=== PATIENT | female | born 1990 | race Caucasian/White ===

== ENCOUNTER 2016-07-02 17:41 | Emergency (ER) | payer OTHER ==
[2016-07-02] MEDS ORDERED: Sodium Chloride 0.9% 1,000 ML IV ONE (18:36)
--- NOTE | 2016-07-02 18:40 | EDM.PDOC ---
ED HPI GENERAL MEDICAL PROBLEM - General Chief Complaint: Abdominal Pain Stated Complaint: PT HAS STOMACH PAIN,PT 14WKS PREG Time Seen by Provider: 07/02/16 18:35 - History of Present Illness INITIAL COMMENTS - FREE TEXT/NARRATIVE: HISTORY AND PHYSICAL: History of present illness: Patient's 26-year-old female is proximally 14 weeks is a known history of cholelithiasis has been seen in the ER prior presents now with scleral icterus she states she's noted his jaundice over the last 20 448 hours she states the upper abdominal pain is improved but she has more back discomfort she one episode of vomiting over the weekend she had no vomiting since she denies fever chills chest pain or shortness of breath no vaginal discharge or bleeding Review of systems: As per history of present illness and below otherwise all systems reviewed and negative. Past medical history: As per history of present illness and as reviewed below otherwise noncontributory. Surgical history: As per history of present illness and as reviewed below otherwise noncontributory. Social history: No reported history of drug or alcohol abuse. Family history: As per history of present illness and as reviewed below otherwise noncontributory. Physical exam: HEENT: Atraumatic, normocephalic, pupils reactive, negative for conjunctival pallor scleral icterus noted, mucous membranes moist, throat clear, neck supple , nontender, trachea midline. Lungs: Clear to auscultation, breath sounds equal bilaterally, chest nontender. Heart: S1S2, regular, negative for clicks, rubs, or JVD. Abdomen: Soft, nondistended, nontender. Negative for masses or hepatosplenomegaly. Negative for costovertebral tenderness. Pelvis: Stable nontender. Genitourinary: Deferred. Rectal: Deferred. Extremities: Atraumatic, negative for cords or calf pain. Neurovascular unremarkable. Neuro: Awake, alert, oriented. Cranial nerves II through XII unremarkable. Cerebellum unremarkable. Motor and sensory unremarkable throughout. Exam nonfocal. Diagnostics: CBC CMP lipase amylase UA urine culture lactic acid PT/INR abdominal ultrasound Therapeutics: Normal saline 1 L bolus Impression: #1 second trimester #2 cholelithiasis with jaundice Definitive disposition and diagnosis as appropriate pending reevaluation and review of above. Abdominal Pain Score (Numeric/FACES): 4 - Related Data Allergies Allergy/AdvReac Type Severity Reaction Status Date / Time No Known Allergies Allergy Verified 07/02/16 18:22 Home Meds: Home Meds Citalopram [Celexa] 10 mg PO DAILY 06/26/16 [History] Vit W-Ca,Fe,FA(<1 mg) [ Vitamins] 1 each PO DAILY 06/26/16 [ History] Vitamin B6-pyridOXINE [Vitamin B6] 0 mg PO DAILY 06/26/16 [History] Lansoprazole [Prevacid] 2 cap PO DAILY 07/02/16 [History] Past Medical History HEENT History: Reports: Impaired vision Cardiovascular History: Reports: None Respiratory History: Reports: None Gastrointestinal History: Reports: None Genitourinary History: Reports: None [employer] WORKER History: Reports: Spontaneous Other Musculoskeletal History: left arm fracture Neurological History: Reports: Other (see below) Other Neuro History: abimael's disease Psychiatric History: Reports: Anxiety, Depression Endocrine/Metabolic History: Reports: None Hematologic History: Reports: None Immunologic History: Reports: None Oncologic (Cancer) History: Reports: None Dermatologic History: Reports: None - Infectious Disease History Infectious Disease History: Reports: Chicken pox - Past Surgical History Head Surgeries/Procedures: Reports: None Neurological Surgical History: Reports: None Musculoskeletal Surgical History: Reports: None Social & Family History - Family History Family Medical History: Noncontributory - Tobacco Use Smoking Status *Q: Never Smoker - Caffeine Use Caffeine Use: Reports: None Caffeine Use Comment: 2-4 drinks/week - Recreational Drug Use Recreational Drug Use: No ED ROS GENERAL - Review of Systems Review Of Systems: ROS reveals no pertinent complaints other than HPI. ED EXAM, GENERAL - Physical Exam Exam: See Below (See dictated) Course - Vital Signs Last Recorded V/S: Last Vital Signs Temp 36.7 C 07/02/16 18:24 Pulse 85 07/02/16 18:24 Resp 16 07/02/16 18:24 BP 104/61 07/02/16 18:24 Pulse Ox 99 07/02/16 18:24 - Orders/Labs/Meds Orders: Active Orders 24 hr Category Date Time Status Abdomen Ltd [US] Stat Exams 07/02/16 18:36 Stop Req AMYLASE [CHEM] Stat Lab 07/02/16 18:47 Received COMPREHENSIVE METABOLIC PN,CMP [CHEM] Stat Lab 07/02/16 18:47 Received CULTURE URINE [RM] Stat Lab 07/02/16 18:40 Received INR,PT,PROTHROMBIN TIME [COAG] Stat Lab 07/02/16 18:47 Received LIPASE [CHEM] Stat Lab 07/02/16 18:47 Received UA W/MICROSCOPIC [URIN] Stat Lab 07/02/16 18:40 Results Sodium Chloride 0.9% [Normal Saline] 1,000 ml Med 07/02/16 18:36 Active IV STAT Medication Orders Sodium Chloride (Normal Saline) 1,000 mls @ 999 mls/hr IV STAT ONE Stop: 07/02/16 19:36 Last Admin: 07/02/16 18:57 Dose: 999 mls/hr Labs: Laboratory Tests 07/02/16 07/02/16 07/02/16 Range/Units 18:40 18:47 18:47 WBC 5.58 (4.0-11.0) K/uL RBC 4.49 (4.30-5.90) M/uL Hgb 13.2 (12.0-16.0) g/dL Hct 39.1 (36.0-46.0) % MCV 87.1 (80.0-98.0) fL MCH 29.4 (27.0-32.0) pg MCHC 33.8 (31.0-37.0) g/dL RDW Std Deviation 48.2 (28.0-62.0) fl RDW Coeff of Gurpreet 15 (11.0-15.0) % Plt Count 181 (150-400) K/uL MPV 11.60 (7.40-12.00) fL Neut % (Auto) 68.4 (48.0-80.0) % Lymph % (Auto) 22.9 (16.0-40.0) % [place] % (Auto) 7.2 (0.0-15.0) % Eos % (Auto) 1.3 (0.0-7.0) % Baso % (Auto) 0.2 (0.0-1.5) % Neut # 3.8 (1.4-5.7) K/uL Lymph # 1.3 (0.6-2.4) K/uL [place] # 0.4 (0.0-0.8) K/uL Eos # 0.1 (0.0-0.7) K/uL Baso # 0.0 (0.0-0.1) K/uL Nucleated RBC % 0.0 /100WBC Nucleated RBCs # 0 K/uL Lactate 0.4 (0.20-2.00) mmol/L Urine Color YELLOW Urine Appearance CLEAR Urine pH 6.5 (5.0-8.0) Ur Specific Amado <= 1.005 (1.001-1.035) Urine Protein NEGATIVE (NEGATIVE) mg/dL Urine Glucose (UA) NEGATIVE (NEGATIVE) mg/dL Urine Ketones NEGATIVE (NEGATIVE) mg/dL Urine Occult Blood NEGATIVE (NEGATIVE) Urine Nitrite NEGATIVE (NEGATIVE) Urine Bilirubin NEGATIVE (NEGATIVE) Urine Urobilinogen 0.2 (<2.0) EU/dL Ur Leukocyte Esterase NEGATIVE (NEGATIVE) Meds: Medications Generic Name Dose Route Start Last Admin Trade Name Freq PRN Reason Stop Dose Admin Sodium Chloride 1,000 mls @ 999 mls/hr 07/02/16 18:36 07/02/16 18:57 Normal Saline IV 07/02/16 19:36 999 mls/hr STAT ONE Administration Departure - Departure Time of Disposition: 19:02 Disposition: DC/Tfer to Other 70 Condition: good Clinical Impression: Cholelithiasis, Jaundice, Second trimester , Abdominal pain Forms: ED Department Discharge - My Orders Last 24 Hours: My Active Orders 07/02/16 18:36 Abdomen Ltd [US] Stat Sodium Chloride 0.9% [Normal Saline] 1,000 ml IV STAT 07/02/16 18:40 CULTURE URINE [RM] Stat UA W/MICROSCOPIC [URIN] Stat 07/02/16 18:47 AMYLASE [CHEM] Stat COMPREHENSIVE METABOLIC PN,CMP [CHEM] Stat INR,PT,PROTHROMBIN TIME [COAG] Stat LIPASE [CHEM] Stat - Assessment/Plan Last 24 Hours: My Active Orders 07/02/16 18:36 Abdomen Ltd [US] Stat Sodium Chloride 0.9% [Normal Saline] 1,000 ml IV STAT 07/02/16 18:40 CULTURE URINE [RM] Stat UA W/MICROSCOPIC [URIN] Stat 07/02/16 18:47 AMYLASE [CHEM] Stat COMPREHENSIVE METABOLIC PN,CMP [CHEM] Stat INR,PT,PROTHROMBIN TIME [COAG] Stat LIPASE [CHEM] Stat
[2016-07-02 19:19] LABS: CHLORIDE,CL 103 mmol/L (98-110); SODIUM,NA 132 mmol/L (136-146)
[2016-07-02 20:46] VITALS: BP 100/60
== END 2016-07-02 19:45 | disposition other institution (70) ==
LOC: MW.ED 17:41
DX: O99.612 Diseases of the digestive system complicating pregnancy, second trimester (principal); R17 Unspecified jaundice; Z79.899 Other long term (current) drug therapy; Z3A.14 14 weeks gestation of pregnancy
CPT/HCPCS: 36415; 80053; 81001; 82150; 83605; 83690; 85025; 85610; 87086; 96360; 99285; J7040; 99284

== ENCOUNTER 2016-12-26 08:52 | Inpatient (IN) | payer OTHER ==
[2016-12-26] MEDS ORDERED: Butorphanol 1 MG/ML SDV IVPUSH PRN (09:16)
[2016-12-26] MEDS ORDERED: Nalbuphine 10 MG/1 ML Vial IVPUSH PRN (09:16)
[2016-12-26] MEDS ORDERED: Water For Irrigation,Sterile 1,000 ML Container IRR PRN (09:16)
[2016-12-26] MEDS ORDERED: Methylergonovine 0.2 MG/1 ML Amp IM PRN (09:16)
[2016-12-26] MEDS ORDERED: Misoprostol 200 MCG Tab PO PRN (09:16)
[2016-12-26] MEDS ORDERED: Carboprost Tromethamine 250 MCG/1 ML Amp IM PRN (09:16)
[2016-12-26] MEDS ORDERED: Lidocaine 1% 50 ML MDV INJECT PRN (09:16)
[2016-12-26] MEDS ORDERED: Sodium Chloride 0.9% 10 ML Syringe FLUSH PRN (09:16)
[2016-12-26] MEDS ORDERED: Sodium Chloride 0.9% 2.5 ML Syringe FLUSH PRN (09:16)
[2016-12-26] MEDS ORDERED: Oxytocin/Lactated Ringers 30 UNIT/500 ML BAG IV SCH (09:30)
[2016-12-26] MEDS ORDERED: Lactated Ringers 1,000 ML IV SCH (09:30)
[2016-12-26] MEDS ORDERED: Lidocaine 1% 50 ML MDV ONE (10:04)
[2016-12-26] MEDS ORDERED: Acetaminophen 500 MG Tab PO PRN ×2 (11:03)
[2016-12-26] MEDS ORDERED: oxyCODONE 5 MG Tab PO PRN (11:03)
[2016-12-26] MEDS ORDERED: Lanolin 100% Cream 7 GM Tube TOP PRN (11:03)
[2016-12-26] MEDS ORDERED: Docusate Sodium 100 MG Cap PO PRN (11:03)
[2016-12-26] MEDS ORDERED: Benzocaine/Menthol 20%-0.5% Spray 78 GM Cannister TOP PRN (11:03)
[2016-12-26] MEDS ORDERED: Ibuprofen 400 MG Tab PO PRN (11:03)
[2016-12-26] MEDS ORDERED: Bisacodyl 10 MG Supp RECTAL PRN (11:03)
[2016-12-26] MEDS ORDERED: Witch Hazel Medicated Pads 40/Jar TOP PRN (11:03)
[2016-12-26] MEDS: Ibuprofen 800 MG Tab PO PRN ×2 (13:10→20:34)
--- NOTE | 2016-12-26 17:25 | OR ---
SURGEON: Gabriella Heaton MD DATE OF PROCEDURE: 12/26/2016 PREOPERATIVE DIAGNOSES: 1. Term at 40 weeks gestation. 2. Spontaneous labor. POSTOPERATIVE DIAGNOSES: 1. Term at 40 weeks gestation. 2. Spontaneous labor. 3. Delivered. PROCEDURES: 1. Precipitate vaginal delivery. 2. Repair of first-degree perineal laceration. ANESTHESIA: Local. ESTIMATED BLOOD LOSS: 100 mL. COMPLICATIONS: None. DISPOSITION: Mother and baby stable in Labor and Delivery room, bonding. FINDINGS: Female infant, weight 3830 g, score 8 and 9 at 1 and 5 minutes respectively. Grossly normal placenta with 3-vessel cord. First-degree laceration. BRIEF HISTORY: Sharron is a 26-year-old, G4, P 2-0-1-2, who presented at 9:00 a.m. today with a history of regular contractions since 6:00 a.m. She denied vaginal bleeding, leakage of fluid, and reported good movement. GBS negative. On presentation, she was 5-6 cm dilated, 100% effaced, station -3 with an intact membranes. While I was evaluating her approximately 45 minute later, she reported that she felt that her membrane had spontaneously ruptured and was complaining of increasing rectal pressure. SROM was confirmed on vaginal examination with clear amniotic fluid and at this stage she was fully dilated at station +3. She was encouraged to commence pushing. Unfortunately she was unable get an epidural which she had requested. heart tracing remained category 1. She was set up for delivery in modified dorsal lithotomy position. PROCEDURE DETAILS: She had a spontaneous vaginal delivery of a live female infant in direct occipital anterior position. Clear amniotic fluid at delivery. Anterior and posterior shoulders and the rest of the infant was delivered without difficulty. Baby was vigorous and cried spontaneously at . The baby was delivered onto the maternal abdomen in the presence of the attendant nursery nurse. With delivery of the , oxytocin infusion was commenced for active management of third stage of labor. Delayed cord clamping was performed and the cord was subsequently cut by the father of the baby. Cord blood and gas specimens were obtained. The placenta was delivered by controlled cord traction, appeared to be complete and intact. Examination of the perineum revealed a small first-degree laceration at 7 o'clock position. The area was infiltrated with 1% lidocaine, after adequate anesthesia was achieved, it was repaired with 2-0 Caprosyn suture. Hemostatic post repair. Uterine massage was performed and the uterus was found to be well contracted below the umbilicus. The patient tolerated the procedure well. Sponge, instrument, and needle counts were correct at the end of the delivery. BRIAN / KRYSTYNA /[id number] MTDD
[2016-12-27] MEDS: Ibuprofen 800 MG Tab PO PRN ×2 (06:02→11:49)
--- NOTE | 2016-12-27 06:31 | PCM.PNPP ---
- General Info Date of Service: 12/27/16 Functional Status: Reports: Pain Controlled, Tolerating Diet, Ambulating, Urinating - Review of Systems General: Denies: Fever, Weakness, Chills HEENT: Denies: Headaches Pulmonary: Denies: Shortness of Breath, Pleuritic Chest Pain, Cough Cardiovascular: Denies: Chest Pain, Palpitations, Dyspnea on Exertion Gastrointestinal: Denies: Abdominal Pain, Nausea, Vomiting Genitourinary: Denies: Dysuria, Incontinence Psychiatric: Denies: Confusion, Anxiety - General Info Date of Service: 12/27/16 - Patient Data Vital Signs - Most Recent: Last Vital Signs Temp 36.6 C 12/27/16 04:00 Pulse 66 12/27/16 04:00 Resp 14 12/27/16 04:00 BP 89/54 L 12/27/16 04:00 Pulse Ox 97 12/27/16 04:00 Weight - Most Recent: 190 lb I&O - Last 24 Hours: Intake & Output 12/26/16 12/26/16 12/27/16 14:59 22:59 06:59 Output Total 400 Balance -400 Lab Results - Last 24 Hours: Laboratory Results - last 24 hr 12/26/16 12/26/16 12/27/16 Range/Units 09:31 09:31 04:58 WBC 11.69 H (4.0-11.0) K/uL RBC 4.51 (4.30-5.90) M/uL Hgb 12.6 11.7 L (12.0-16.0) g/dL Hct 38.0 36.2 (36.0-46.0) % MCV 84.3 (80.0-98.0) fL MCH 27.9 (27.0-32.0) pg MCHC 33.2 (31.0-37.0) g/dL RDW Std Deviation 45.8 (28.0-62.0) fl RDW Coeff of Gurpreet 15 (11.0-15.0) % Plt Count 164 (150-400) K/uL MPV 12.70 H (7.40-12.00) fL Nucleated RBC % 0.0 /100WBC Nucleated RBCs # 0 K/uL Blood Type A POSITIVE Antibody Screen NEGATIVE Med Orders - Current: Current Medications Acetaminophen (Tylenol Extra Strength) 500 mg PO Q4H PRN PRN Reason: Pain Acetaminophen (Tylenol Extra Strength) 1,000 mg PO Q4H PRN PRN Reason: Pain Last Admin: 12/26/16 23:20 Dose: 1,000 mg Benzocaine/Menthol (Dermoplast Pain Relief 20%-0.5% [place]) 78 gm TOP ASDIRECTED PRN PRN Reason: Perineal Comfort Measure Last Admin: 12/26/16 13:14 Dose: 1 can Bisacodyl (Dulcolax) 10 mg RECTAL .ONCE PRN PRN Reason: Constipation Docusate Sodium (Colace) 100 mg PO BID PRN PRN Reason: Constipation Emollient Ointment (Lansinoh Hpa) 0 gm TOP ASDIRECTED PRN PRN Reason: Sore Nipples Ibuprofen (Motrin) 400 mg PO Q4H PRN PRN Reason: Pain Ibuprofen (Motrin) 800 mg PO Q6H PRN PRN Reason: Pain Last Admin: 12/27/16 06:02 Dose: 800 mg Oxycodone HCl (Oxycodone) 5 mg PO Q2H PRN PRN Reason: Pain Witch Meaghan (Tucks) 1 pad TOP ASDIRECTED PRN PRN Reason: comfort care Last Admin: 12/26/16 13:11 Dose: 1 tub Discontinued Medications Butorphanol Tartrate (Stadol) 1 mg IVPUSH Q1H PRN PRN Reason: Pain Carboprost Tromethamine (Hemabate Ds) 250 mcg IM ASDIRECTED PRN PRN Reason: Post Hemorrhage Lactated Ringer's (Ringers, Lactated) 1,000 mls @ 150 mls/hr IV ASDIRECTED JUAN MANUEL Last Admin: 12/26/16 09:39 Dose: 500 mls/hr Oxytocin/Lactated Ringer's (Pitocin In Lr 30 Units/500 Ml) 30 unit in 500 mls @ 999 mls/hr IV TITRATE JUAN MANUEL; 999 MUNITS/MIN PRN Reason: Protocol Stop: 12/26/16 10:01 Lidocaine HCl (Xylocaine 1%) 50 ml INJECT .ONCE PRN PRN Reason: Laceration repair Lidocaine HCl (Xylocaine 1%) Confirm Administered Dose 50 ml .ROUTE .[facility] ONE Stop: 12/26/16 10:05 Methylergonovine Maleate (Methergine) 0.2 mg IM ASDIRECTED PRN PRN Reason: Post Hemorrhage Misoprostol (Cytotec) 200 mcg PO .ONCE PRN PRN Reason: Post Hemorrhage Nalbuphine HCl (Nubain) 10 mg IVPUSH Q1H PRN PRN Reason: Pain (severe 7-10) Sodium Chloride (Saline Flush) 10 ml FLUSH ASDIRECTED PRN PRN Reason: Keep Vein Open Sodium Chloride (Saline Flush) 2.5 ml FLUSH ASDIRECTED PRN PRN Reason: Keep Vein Open Sterile Water (Sterile Water For Irrigation) 1,000 ml IRR ASDIRECTED PRN PRN Reason: delivery - Interaction Infant Disposition, : [place] at Bedside Infant Interaction: Not Applicable Feeding: Breastfed Infant; Nursed Well Support Person: - Recovery Exam Fundal Tone: Firm Fundal Level: 1 Fingerbreadths Below Umbilicus Fundal Placement: Midline Lochia Amount: Scant Lochia Color: Rubra/Red Perineum Description: Other (see below) Other Perinuem Description: 1st degree laceration with repair Episiotomy/Laceration: Approximated Bladder Status: Voiding Urinary Elimination: Voided - Exam General: Alert, Oriented Lungs: Clear to Auscultation, Normal Respiratory Effort Cardiovascular: Regular Rate, Regular Rhythm GI/Abdominal Exam: Soft, Non-Tender Extremities: Pedal Edema Skin: Warm Psy/Mental Status: Alert, Normal Affect, Normal Mood - Problem List & Annotations (1) Vaginal delivery SNOMED Code(s): 661731424 Code(s): O80 - ENCOUNTER FOR FULL-TERM UNCOMPLICATED DELIVERY Status: Acute Current Visit: No - Problem List Review Problem List Initiated/Reviewed/Updated: Yes - My Orders Last 24 Hours: My Active Orders 12/26/16 08:59 Non Stress Test [RC] PER UNIT ROUTINE Up ad Tiffani [RC] ASDIRECTED Vaginal Exam [RC] Click to Edit Vital Signs [RC] PER UNIT ROUTINE 12/26/16 09:16 Heart Tones [RC] CONTINUOUS Non Stress Test [RC] PER UNIT ROUTINE May Shower [RC] ASDIRECTED Notify Provider [RC] PRN Up ad Tiffani [RC] ASDIRECTED Vaginal Exam [RC] PRN Vital Signs [RC] PER UNIT ROUTINE 12/26/16 11:03 Patient Status [ADT] Routine May Shower [RC] ASDIRECTED Up ad Tiffani [RC] ASDIRECTED Vital Signs [RC] PER UNIT ROUTINE Acetaminophen [Tylenol Extra Strength] 1,000 mg PO Q4H PRN Acetaminophen [Tylenol Extra Strength] 500 mg PO Q4H PRN Benzocaine/Menthol [Dermoplast Pain Relief 20%-0.5% [place]] 78 gm TOP ASDIRECTED PRN Bisacodyl [Dulcolax] 10 mg RECTAL .ONCE PRN Docusate Sodium [Colace] 100 mg PO BID PRN Ibuprofen [Motrin] 400 mg PO Q4H PRN Ibuprofen [Motrin] 800 mg PO Q6H PRN Lanolin [Lansinoh HPA] See Dose Instructions TOP ASDIRECTED PRN Witch Meaghan [Tucks] 1 pad TOP ASDIRECTED PRN oxyCODONE 5 mg PO Q2H PRN Assess Lochia [WOMSER] Per Unit Routine Assess Uterine Involution [WOMSER] Per Unit Routine Breast Pump [WOMSER] Per Unit Routine Perineal Care [OM.PC] Per Unit Routine Peripheral IV Discontinue [OM.PC] Routine Resuscitation Status Routine 12/26/16 Lunch Regular Diet [DIET] - Assessment Assessment:: PPD#1 s/p , stable and afebrile Clinically stable for discharge - Plan Plan:: Patient may be discharged home if baby is discharged by peds Discharge instructions were given Bleeding and infection precaution reviewed Nothing in the vagina for 6 weeks Continue PNV Follow up in 6 weeks
[2016-12-27 11:40] VITALS: BP 106/66
== END 2016-12-27 12:17 | disposition home or self-care (01) | DRG 775 ==
LOC: MW.OBCHECK 08:52 → MW.OB 08:54 → MW.OBCHECK 09:50 → OBSVTOIN 10:05 → MW.OB 10:05
PROVIDERS: ADMIT Obstetrics & Gynecology; ATTEND Obstetrics & Gynecology
PROC: 10E0XZZ Delivery of Products of Conception, External Approach (ICD-10-PCS; principal; 2016-12-26)
PROC: 0HQ9XZZ Repair Perineum Skin, External Approach (ICD-10-PCS; 2016-12-26)
DX: O62.3 Precipitate labor (principal); O70.0 First degree perineal laceration during delivery; Z3A.40 40 weeks gestation of pregnancy; Z37.0 Single live birth
CPT/HCPCS: 36415; 59025; 85014; 85018; 85027; 86850; 86900; 86901; A9270-GY; J7120

== ENCOUNTER 2018-11-29 20:35 | Inpatient (IN) | payer OTHER ==
[2018-11-29] MEDS ORDERED: Oxytocin/0.9 % Sodium Chloride 30 UNIT/500 ML BAG IV SCH (23:45)
[2018-11-29] MEDS ORDERED: Lactated Ringers 1,000 ML IV SCH (23:45)
[2018-11-29] MEDS ORDERED: Sodium Chloride 0.9% 10 ML SDV IV PRN (23:48)
[2018-11-29] MEDS ORDERED: Ondansetron 4 MG/2 ML SDV IVPUSH PRN (23:48)
[2018-11-29] MEDS ORDERED: Lidocaine 1% 50 ML MDV INJECT PRN (23:48)
[2018-11-29] MEDS ORDERED: Nalbuphine 10 MG/1 ML Vial IVPUSH PRN (23:48)
[2018-11-29] MEDS ORDERED: Butorphanol 1 MG/ML SDV IVPUSH PRN (23:48)
[2018-11-29] MEDS ORDERED: Sodium Chloride 0.9% 10 ML Syringe FLUSH PRN (23:48)
[2018-11-29] MEDS ORDERED: Tranexamic Acid 1,000 MG in Sodium Chloride 0.9% 100 ML IV PRN (23:48)
[2018-11-29] MEDS ORDERED: Water For Irrigation,Sterile 1,000 ML Container IRR PRN (23:48)
[2018-11-29] MEDS ORDERED: Methylergonovine 0.2 MG/1 ML Amp IM PRN (23:48)
[2018-11-29] MEDS ORDERED: Misoprostol 200 MCG Tab PO PRN (23:48)
[2018-11-29] MEDS ORDERED: Sodium Chloride 0.9% 2.5 ML Syringe FLUSH PRN (23:48)
[2018-11-29] MEDS ORDERED: Carboprost Tromethamine 250 MCG/1 ML Amp IM PRN (23:48)
[2018-11-30] MEDS ORDERED: Ropivacaine HCl/PF 100 ML ONE (00:50)
[2018-11-30] MEDS ORDERED: fentaNYL 100 MCG/2 ML SDV ONE (00:50)
[2018-11-30] MEDS ORDERED: Benzocaine/Menthol 20%-0.5% Spray 78 GM Cannister TOP PRN (01:21)
[2018-11-30] MEDS ORDERED: Aluminum Hydroxide/Magnesium Hydroxide/Simethicone Susp 30 ML Cup PO PRN (01:21)
[2018-11-30] MEDS ORDERED: Witch Hazel Medicated Pads 40/Jar TOP PRN (01:21)
[2018-11-30] MEDS ORDERED: Lanolin 100% Cream 7 GM Tube TOP PRN (01:21)
[2018-11-30] MEDS ORDERED: Acetaminophen 500 MG Tab PO PRN (01:21)
[2018-11-30] MEDS ORDERED: Bisacodyl 10 MG Supp RECTAL PRN (01:21)
[2018-11-30] MEDS ORDERED: oxyCODONE 5 MG Tab PO PRN (01:21)
[2018-11-30] MEDS ORDERED: Ibuprofen 400 MG Tab PO PRN (01:21)
[2018-11-30] MEDS ORDERED: Docusate Sodium 100 MG Cap PO PRN (01:21)
--- NOTE | 2018-11-30 01:29 | PCM.OPNOTE ---
- General Post-Op/Procedure Note Date of Surgery/Procedure: 11/30/18 Operative Procedure(s): /1st MLL repaired Findings: Viable male APGARs 9, 9 weight pending. spontaneous delivery intact placenta with 3V cord. Pre Op Diagnosis: 39 week IUP. Active labor Post-Op Diagnosis: Same Anesthesia Technique: Local Primary Surgeon: Anita Sam EBL in mLs: 300 Complications: none known Condition: Stable Free Text/Narrative:: Dictation [id number]
--- NOTE | 2018-11-30 02:03 | OR ---
SURGEON: Anita Sam M.D. DATE OF PROCEDURE: 11/30/2018 PREOPERATIVE DIAGNOSES: 1. A 39-week intrauterine . 2. Active labor. POSTOPERATIVE DIAGNOSES: 1. A 39-week intrauterine . 2. Active labor. PROCEDURE: Spontaneous vaginal delivery, first-degree midline laceration repaired. ANESTHESIA: Local. ESTIMATED BLOOD LOSS: 300 mL. COMPLICATIONS: None. FINDINGS: Viable male. score 9 at 1 minute and 9 at 5 minutes. Weight is pending. Spontaneous delivery, intact placenta, 3-vessel cord. DISPOSITION: to [facility], mom in LDRP. PROCEDURE DETAILS: Sharron is a 28-year-old, -0-1-3, at 39 weeks' gestational age who presents in the late evening of 11/29/2018 with regular contractions. She was found to be 6 cm, 90% effaced, -2 station. Therefore, she was admitted. Routine labs were drawn, IV hydration was initiated. The patient had spontaneous rupture of membranes. Clear fluid was returned. She is group B beta strep negative. heart tones are category 1. The patient began to progress more quickly thereafter. Weed Control Inspector arrived; however, the patient was already progressed to complete and feeling the urge to push. Therefore, she was placed in modified dorsal lithotomy position. With next contraction, she was found to be in the +4 station, therefore pushed. Delivered infant's head atraumatically, spontaneously, followed by anterior shoulder, posterior shoulder, and remainder of body. Infant's oropharynx and nares bulb suctioned. was handed to his mother with attending nursing staff at her side. After a delay, cord was clamped x2 and cut. Cord arterial, cord venous, cord blood sampling obtained. Light pressure was applied while the placenta was delivered spontaneously intact. Vigorous fundal uterine massage was then applied while 30 units of Pitocin was delivered in 500 mL of IV fluid. Upon inspection of cervix, vaginal sidewalls, and perineum, there was found to be a first-degree midline laceration, repaired using 3-0 Vicryl after prepping the region with approximately 6 mL of 1% lidocaine. The patient tolerated the repair well. Hemostasis appeared evident. Uterus remained firm. Sponge, instrument, and needle count was correct. The patient remained in LDRP, to [facility]. DELANEY / KRYSTYNA /[id number]
[2018-11-30] MEDS: Ibuprofen 800 MG Tab PO PRN ×2 (04:32→13:54)
[2018-11-30] MEDS: Acetaminophen 500 MG Tab PO PRN ×2 (08:25→17:27)
--- NOTE | 2018-11-30 19:10 | PCM.PNPP ---
- General Info Date of Service: 11/30/18 Subjective Update: 28yo P4 s/p PPD0 , she is ambulating , voiding and tolerating regular diet , want to go home at 3am when baby is 24hrs Functional Status: Reports: Pain Controlled, Tolerating Diet, Ambulating, Urinating - Review of Systems General: Reports: No Symptoms HEENT: Reports: No Symptoms Pulmonary: Reports: No Symptoms Cardiovascular: Reports: No Symptoms Gastrointestinal: Reports: No Symptoms Genitourinary: Reports: No Symptoms Musculoskeletal: Reports: No Symptoms Skin: Reports: No Symptoms Neurological: Reports: No Symptoms - General Info Date of Service: 11/30/18 - Patient Data Vital Signs - Most Recent: Last Vital Signs Temp 36.8 C 11/30/18 04:05 Pulse 74 11/30/18 04:05 Resp 16 11/30/18 04:05 BP 111/63 11/30/18 04:05 Pulse Ox 97 11/30/18 04:05 Weight - Most Recent: 88.904 kg Lab Results - Last 24 Hours: Laboratory Results - last 24 hr 11/30/18 11/30/18 11/30/18 Range/Units 00:00 00:00 00:57 WBC 16.51 H (4.0-11.0) K/uL RBC 4.35 (4.30-5.90) M/uL Hgb 10.9 L (12.0-16.0) g/dL Hct 34.6 L (36.0-46.0) % MCV 79.5 L (80.0-98.0) fL MCH 25.1 L (27.0-32.0) pg MCHC 31.5 (31.0-37.0) g/dL RDW Std Deviation 43.3 (28.0-62.0) fl RDW Coeff of Gurpreet 15 (11.0-15.0) % Plt Count 175 (150-400) K/uL MPV 12.30 H (7.40-12.00) fL Nucleated RBC % 0.0 /100WBC Nucleated RBCs # 0 K/uL Cord ABG pH 7.238 (7.18-7.38) Cord ABG Base Excess -6 (-10--2) Cord VBG pH 7.304 (7.25-7.45) Cord VBG Base Excess -6 (-10--2) Blood Type A POSITIVE Antibody Screen NEGATIVE 11/30/18 Range/Units 12:07 WBC (4.0-11.0) K/uL RBC (4.30-5.90) M/uL Hgb 10.4 L (12.0-16.0) g/dL Hct 32.7 L (36.0-46.0) % MCV (80.0-98.0) fL MCH (27.0-32.0) pg MCHC (31.0-37.0) g/dL RDW Std Deviation (28.0-62.0) fl RDW Coeff of Gurpreet (11.0-15.0) % Plt Count (150-400) K/uL MPV (7.40-12.00) fL Nucleated RBC % /100WBC Nucleated RBCs # K/uL Cord ABG pH (7.18-7.38) Cord ABG Base Excess (-10--2) Cord VBG pH (7.25-7.45) Cord VBG Base Excess (-10--2) Blood Type Antibody Screen Med Orders - Current: Current Medications Acetaminophen (Tylenol Extra Strength) 500 mg PO Q4H PRN PRN Reason: Pain Acetaminophen (Tylenol Extra Strength) 1,000 mg PO Q4H PRN PRN Reason: Pain Last Admin: 11/30/18 17:27 Dose: 1,000 mg Al Hydroxide/Mg Hydroxide (Mag-Al Plus) 30 ml PO Q8H PRN PRN Reason: Heartburn Benzocaine/Menthol (Dermoplast Pain Relief 20%-0.5% [place]) 78 gm TOP ASDIRECTED PRN PRN Reason: Perineal Comfort Measure Bisacodyl (Dulcolax) 10 mg RECTAL ONETIME PRN PRN Reason: Constipation Docusate Sodium (Colace) 100 mg PO BID PRN PRN Reason: Constipation Emollient Ointment (Lansinoh Hpa) 0 gm TOP ASDIRECTED PRN PRN Reason: Sore Nipples Lactated Ringer's (Ringers, Lactated) 1,000 mls @ 150 mls/hr IV ASDIRECTED JUAN MANUEL Last Admin: 11/30/18 00:10 Dose: 999 mls/hr Oxytocin/Sodium Chloride (Oxytocin 30 Unit/500 Ml-Ns) 30 unit in 500 mls @ 555 mls/hr IV TITRATE JUAN MANUEL Tranexamic Acid 1,000 mg/ (Sodium Chloride) 110 mls @ 660 mls/hr IV ONETIME PRN PRN Reason: Bleeding Ibuprofen (Motrin) 400 mg PO Q4H PRN PRN Reason: Pain Ibuprofen (Motrin) 800 mg PO Q6H PRN PRN Reason: Pain Last Admin: 11/30/18 13:54 Dose: 800 mg Lidocaine HCl (Xylocaine 1%) 50 ml INJECT ONETIME PRN PRN Reason: Laceration repair Last Admin: 11/30/18 01:00 Dose: 50 ml Methylergonovine Maleate (Methergine) 0.2 mg IM ASDIRECTED PRN PRN Reason: Post Hemorrhage Misoprostol (Cytotec) 200 mcg PO ONETIME PRN PRN Reason: Post Hemorrhage Nalbuphine HCl (Nubain) 10 mg IVPUSH Q1H PRN PRN Reason: Pain (severe 7-10) Ondansetron HCl (Zofran) 4 mg IVPUSH Q4H PRN PRN Reason: Nausea/Vomiting Oxycodone HCl (Oxycodone) 5 mg PO Q2H PRN PRN Reason: Pain Sodium Chloride (Saline Flush) 10 ml FLUSH ASDIRECTED PRN PRN Reason: Keep Vein Open Sodium Chloride (Saline Flush) 2.5 ml FLUSH ASDIRECTED PRN PRN Reason: Keep Vein Open Sodium Chloride (Normal Saline) 10 ml IV ASDIRECTED PRN PRN Reason: IV Use Sterile Water (Sterile Water For Irrigation) 1,000 ml IRR ASDIRECTED PRN PRN Reason: delivery Last Admin: 11/30/18 01:00 Dose: 1,000 ml Witch Meaghan (Tucks) 1 pad TOP ASDIRECTED PRN PRN Reason: comfort care Discontinued Medications Butorphanol Tartrate (Stadol) 1 mg IVPUSH Q1H PRN PRN Reason: Pain Carboprost Tromethamine (Hemabate Ds) 250 mcg IM ASDIRECTED PRN PRN Reason: Post Hemorrhage Fentanyl (Sublimaze) Confirm Administered Dose 100 mcg .ROUTE .STK-MED ONE Stop: 11/30/18 00:51 Ropivacaine (Naropin 0.2%) Confirm Administered Dose 100 mls @ as directed .ROUTE .STK-MED ONE Stop: 11/30/18 00:51 - Interaction Support Person: - Recovery Exam Fundal Tone: Firms with Massage Fundal Level: 1 Fingerbreadths Below Umbilicus Fundal Placement: Midline Lochia Amount: Scant Lochia Color: Rubra/Red Perineum Description: Other (see below) Other Perinuem Description: 1 degree laceration Episiotomy/Laceration: Approximated Bladder Status: Voiding Urinary Elimination: Voided - Exam General: Alert HEENT: Pupils Equal Neck: Supple Lungs: Clear to Auscultation Cardiovascular: Regular Rate GI/Abdominal Exam: Normal Bowel Sounds Extremities: Normal Inspection Skin: Warm Neurological: No New Focal Deficit Psy/Mental Status: Alert - Problem List & Annotations (1) Vaginal delivery SNOMED Code(s): 981615572 Code(s): O80 - ENCOUNTER FOR FULL-TERM UNCOMPLICATED DELIVERY Status: Acute Current Visit: No - Problem List Review Problem List Initiated/Reviewed/Updated: Yes - Assessment Assessment:: 28yo P4 s/p PPD0 , she is ambulating , voiding and tolerating regular diet , want to go home at 3am when baby is 24hrs - Plan Plan:: Routine Discharge home as per patient request if stable
[2018-12-01] MEDS: Ibuprofen 800 MG Tab PO PRN (04:53)
[2018-12-01] MEDS: Acetaminophen 500 MG Tab PO PRN (08:37)
--- NOTE | 2018-12-01 10:05 | PCM.PNPP ---
- General Info Date of Service: 12/01/18 Subjective Update: 28yo P4 s/p PPD1 , she is ambulating , voiding and tolerating regular diet , Functional Status: Reports: Pain Controlled, Tolerating Diet, Ambulating, Urinating - Review of Systems General: Reports: No Symptoms HEENT: Reports: No Symptoms Pulmonary: Reports: No Symptoms Cardiovascular: Reports: No Symptoms Gastrointestinal: Reports: No Symptoms Genitourinary: Reports: No Symptoms Musculoskeletal: Reports: No Symptoms Skin: Reports: No Symptoms Neurological: Reports: No Symptoms Psychiatric: Reports: No Symptoms - General Info Date of Service: 12/01/18 - Patient Data Vital Signs - Most Recent: Last Vital Signs Temp 36.3 C 12/01/18 04:40 Pulse 67 12/01/18 04:40 Resp 15 12/01/18 04:40 BP 115/78 12/01/18 04:40 Pulse Ox 97 12/01/18 04:40 Weight - Most Recent: 88.904 kg Lab Results - Last 24 Hours: Laboratory Results - last 24 hr 11/30/18 Range/Units 12:07 Hgb 10.4 L (12.0-16.0) g/dL Hct 32.7 L (36.0-46.0) % Med Orders - Current: Current Medications Acetaminophen (Tylenol Extra Strength) 500 mg PO Q4H PRN PRN Reason: Pain Acetaminophen (Tylenol Extra Strength) 1,000 mg PO Q4H PRN PRN Reason: Pain Last Admin: 12/01/18 08:37 Dose: 1,000 mg Al Hydroxide/Mg Hydroxide (Mag-Al Plus) 30 ml PO Q8H PRN PRN Reason: Heartburn Benzocaine/Menthol (Dermoplast Pain Relief 20%-0.5% [place]) 78 gm TOP ASDIRECTED PRN PRN Reason: Perineal Comfort Measure Bisacodyl (Dulcolax) 10 mg RECTAL ONETIME PRN PRN Reason: Constipation Docusate Sodium (Colace) 100 mg PO BID PRN PRN Reason: Constipation Last Admin: 12/01/18 08:37 Dose: 100 mg Emollient Ointment (Lansinoh Hpa) 0 gm TOP ASDIRECTED PRN PRN Reason: Sore Nipples Lactated Ringer's (Ringers, Lactated) 1,000 mls @ 150 mls/hr IV ASDIRECTED JUAN MANUEL Last Admin: 11/30/18 00:10 Dose: 999 mls/hr Oxytocin/Sodium Chloride (Oxytocin 30 Unit/500 Ml-Ns) 30 unit in 500 mls @ 555 mls/hr IV TITRATE [facility] Tranexamic Acid 1,000 mg/ (Sodium Chloride) 110 mls @ 660 mls/hr IV ONETIME PRN PRN Reason: Bleeding Ibuprofen (Motrin) 400 mg PO Q4H PRN PRN Reason: Pain Ibuprofen (Motrin) 800 mg PO Q6H PRN PRN Reason: Pain Last Admin: 12/01/18 04:53 Dose: 800 mg Lidocaine HCl (Xylocaine 1%) 50 ml INJECT ONETIME PRN PRN Reason: Laceration repair Last Admin: 11/30/18 01:00 Dose: 50 ml Methylergonovine Maleate (Methergine) 0.2 mg IM ASDIRECTED PRN PRN Reason: Post Hemorrhage Misoprostol (Cytotec) 200 mcg PO ONETIME PRN PRN Reason: Post Hemorrhage Nalbuphine HCl (Nubain) 10 mg IVPUSH Q1H PRN PRN Reason: Pain (severe 7-10) Ondansetron HCl (Zofran) 4 mg IVPUSH Q4H PRN PRN Reason: Nausea/Vomiting Oxycodone HCl (Oxycodone) 5 mg PO Q2H PRN PRN Reason: Pain Sodium Chloride (Saline Flush) 10 ml FLUSH ASDIRECTED PRN PRN Reason: Keep Vein Open Sodium Chloride (Saline Flush) 2.5 ml FLUSH ASDIRECTED PRN PRN Reason: Keep Vein Open Sodium Chloride (Normal Saline) 10 ml IV ASDIRECTED PRN PRN Reason: IV Use Sterile Water (Sterile Water For Irrigation) 1,000 ml IRR ASDIRECTED PRN PRN Reason: delivery Last Admin: 11/30/18 01:00 Dose: 1,000 ml Witch Meaghan (Tucks) 1 pad TOP ASDIRECTED PRN PRN Reason: comfort care Discontinued Medications Butorphanol Tartrate (Stadol) 1 mg IVPUSH Q1H PRN PRN Reason: Pain Carboprost Tromethamine (Hemabate Ds) 250 mcg IM ASDIRECTED PRN PRN Reason: Post Hemorrhage Fentanyl (Sublimaze) Confirm Administered Dose 100 mcg .ROUTE .STK-MED ONE Stop: 11/30/18 00:51 Ropivacaine (Naropin 0.2%) Confirm Administered Dose 100 mls @ as directed .ROUTE .STK-MED ONE Stop: 11/30/18 00:51 - Infant Interaction Support Person: - Recovery Exam Fundal Tone: Firm Fundal Level: 1 Fingerbreadths Below Umbilicus Fundal Placement: Midline Lochia Amount: Scant Lochia Color: Rubra/Red Perineum Description: Intact, Minimal Bruising/Swelling Other Perinuem Description: 1 degree laceration Episiotomy/Laceration: None Bladder Status: Voiding Urinary Elimination: Voided - Exam General: Alert, Oriented HEENT: Pupils Equal Neck: Supple Lungs: Clear to Auscultation Cardiovascular: Regular Rate, Regular Rhythm GI/Abdominal Exam: Normal Bowel Sounds Extremities: Normal Inspection Neurological: No New Focal Deficit Psy/Mental Status: Alert - Problem List & Annotations (1) Vaginal delivery SNOMED Code(s): 592014190 Code(s): O80 - ENCOUNTER FOR FULL-TERM UNCOMPLICATED DELIVERY Status: Acute Current Visit: No - Problem List Review Problem List Initiated/Reviewed/Updated: Yes - My Orders Last 24 Hours: My Active Orders 11/30/18 19:11 Ready for Discharge [RC] PER UNIT ROUTINE - Assessment Assessment:: 28yo P4 s/p PPD1 , she is ambulating , voiding and tolerating regular diet - Plan Plan:: Routine Discharge home
[2018-12-01 12:50] VITALS: BP 105/74; PULSE 74
== END 2018-12-01 12:35 | disposition home or self-care (01) | DRG 807 ==
LOC: MW.OBCHECK 20:35 → MW.OB 20:40 → MW.OBCHECK 11-30 00:56 → MW.OB 11-30 05:14
PROVIDERS: ADMIT Obstetrics & Gynecology; ATTEND Obstetrics & Gynecology
PROC: 10E0XZZ Delivery of Products of Conception, External Approach (ICD-10-PCS; principal; 2018-11-30)
PROC: 0HQ9XZZ Repair Perineum Skin, External Approach (ICD-10-PCS; 2018-11-30)
DX: O70.0 First degree perineal laceration during delivery (principal); Z3A.39 39 weeks gestation of pregnancy; Z37.0 Single live birth
CPT/HCPCS: 36415; 59025; 59409; 82803; 85014; 85018; 85027; 86850; 86900; 86901; A9270-GY; J2001; J2795; J3010; J7120

== ENCOUNTER 2024-05-31 11:14 | Inpatient (IN) | payer BC, OTHER ==
[~2024-05-31 11:14] MED LIST: Dextrose 5 GM in 12.5 GM Tube ONE
[2024-05-31] MEDS: Misoprostol 100 MCG Tab RECTAL PRN (11:14)
[2024-05-31] MEDS ORDERED: Methylergonovine 0.2 MG/1 ML Amp IM PRN (11:26)
[2024-05-31] MEDS ORDERED: Carboprost Tromethamine 250 MCG/1 mL Vial IM PRN (11:26)
[2024-05-31] MEDS ORDERED: Misoprostol 200 MCG Tab PO PRN (11:26)
[2024-05-31] MEDS ORDERED: Lidocaine 1% 50 ML MDV INJECT PRN (11:26)
[2024-05-31] MEDS ORDERED: Sodium Chloride 0.9% 20 ML SDV IV PRN (11:26)
[2024-05-31] MEDS ORDERED: Butorphanol 2 MG/ML SDV IVPUSH PRN (11:26)
[2024-05-31] MEDS ORDERED: Sodium Chloride 0.9% 10 ML Syringe FLUSH PRN (11:26)
[2024-05-31] MEDS ORDERED: Water For Irrigation,Sterile 1,000 ML Container IRR PRN (11:26)
[2024-05-31] MEDS ORDERED: Sodium Chloride 0.9% 2.5 ML Syringe FLUSH PRN (11:26)
[2024-05-31] MEDS ORDERED: Tranexamic Acid in NACL,ISO-OS 1,000 MG in Premix Bag 1 BAG IV PRN (11:26)
[2024-05-31] MEDS ORDERED: Oxytocin/0.9 % Sodium Chloride 30 UNIT/500 ML BAG IV SCH (11:30)
[2024-05-31] MEDS ORDERED: Lactated Ringers 1,000 ML IV SCH (11:30)
[2024-05-31] MEDS ORDERED: Lanolin 100% Cream 7 GM Tube TOP PRN (11:30)
[2024-05-31 11:57] LABS: HEMATOCRIT 41.3 % (37.0-47.0); HEMOGLOBIN 13.4 g/dL (12.0-16.0); MEAN CORPUSCULAR HEMOGLOBIN 26.5 pg (28.0-32.0); MEAN CORPUSCULAR HGB CONC 32.4 g/dL (32.0-36.0); MEAN CORPUSCULAR VOLUME 81.8 fL (83.0-99.0); PLATELET COUNT,PLT 194 K/uL (150-400); RED BLOOD CELL COUNT 5.05 M/uL (4.10-5.30); WHITE BLOOD CELL COUNT,WBC 12.62 K/uL (3.9-11.3)
[2024-05-31] MEDS: Oxytocin 10 Units/1 ML SDV IM ONE (12:00)
[2024-05-31] MEDS: Ibuprofen 800 MG Tab PO PRN (13:18)
[2024-05-31] MEDS: Docusate Sodium 100 MG Cap PO PRN (13:19)
[2024-05-31] MEDS: Witch Hazel Medicated Pads 40/Jar TOP PRN (13:20)
[2024-05-31] MEDS: Benzocaine/Menthol 20%-0.5% Spray 78 GM Cannister TOP PRN (13:21)
[2024-05-31] MEDS: Acetaminophen 500 MG Tab PO PRN (16:37)
[2024-06-01 05:47] LABS: HEMATOCRIT 33.5 % (37.0-47.0)
[2024-06-01] MEDS: Sertraline 100 MG Tab PO SCH (08:58)
[2024-06-01] MEDS ORDERED: buPROPion 150 MG Tab.ER PO SCH (09:00)
[2024-06-01 16:04] VITALS: BP 117/63; PULSE 80
== END 2024-06-01 14:15 | disposition home or self-care (01) | DRG 769 ==
LOC: MW.OB 11:14
PROVIDERS: ADMIT Obstetrics & Gynecology; ATTEND Obstetrics & Gynecology
PROC: 10D17ZZ Extraction of Products of Conception, Retained, Via Natural or Artificial Opening (ICD-10-PCS; principal; 2024-05-31)
PROC: 0HQ9XZZ Repair Perineum Skin, External Approach (ICD-10-PCS; 2024-05-31)
DX: O70.0 First degree perineal laceration during delivery (principal); O73.0 Retained placenta without hemorrhage; O99.215 Obesity complicating the puerperium
CPT/HCPCS: 36415; 59414; 59514; 85014; 85018; 85027; 86592; 86850; 86900; 86901; 99221; 99238; A9270-GY; J2590